=== PATIENT | female | born 1935 | race Caucasian/White ===

== ENCOUNTER 2017-07-05 16:44 | Inpatient (IN) | payer OTHER ==
[~2017-07-05] VITALS: Ht 160 cm; Wt 81.6 kg
[~2017-07-05 16:44] MED LIST: ACID CONTROLLER20 MG; ACIDOPHILUS LA1 EACH PO; AMLODIPINE BESYL5 MG PO; CARAFATE1 GM PO; CEFDINIR300 MG PO; CITALOPRAM20 MG/10 M; CITALOPRAM20 MG/10 M PO; CLOPIDOGREL BIS75 MG; CLORAZEPATE D3.75 MG; EDLUAR5 MG; EDLUAR5 MG PO; HUMALOG; HYDRALAZINE HCL25 MG; INSULINA; LAMICTAL25 M1; LOSARTAN POTASS25 MG PO; NAMENDA10 MG; NAMENDA10 MG PO; OMEPRAZOLE20 M1 PO; OSEL75CA PO; PANTOPRAZOLE SO40 MG PO; PROTEINEX1 TA1 PO; TOPROL XL50 MG PO
[2017-07-05] MEDS ORDERED: HUMALOG100 UNIT/1 (17:07)
[2017-07-05] MEDS ORDERED: PROTONIX40 MG (17:07)
[2017-07-05] MEDS ORDERED: PLAVIX75 MG (17:08)
[2017-07-05] MEDS ORDERED: RESTORIL15 M1 (17:09)
== END 2017-07-07 16:19 | disposition expired | DRG 871 ==
LOC: ER 16:44 → ICU-2 07-06 00:27
PROC: 5A1945Z Respiratory Ventilation, 24-96 Consecutive Hours (ICD-10-PCS; principal; 2017-07-06)
PROC: 0BH17EZ Insertion of Endotracheal Airway into Trachea, Via Natural or Artificial Opening (ICD-10-PCS; 2017-07-06)
PROC: 4A033R1 Measurement of Arterial Saturation, Peripheral, Percutaneous Approach (ICD-10-PCS; 2017-07-06)
PROC: 06HM33Z Insertion of Infusion Device into Right Femoral Vein, Percutaneous Approach (ICD-10-PCS; 2017-07-06)
PROC: 3E0336Z Introduction of Nutritional Substance into Peripheral Vein, Percutaneous Approach (ICD-10-PCS; 2017-07-06)
PROC: 3E0F7GC Introduction of Other Therapeutic Substance into Respiratory Tract, Via Natural or Artificial Opening (ICD-10-PCS; 2017-07-06)
DX: A41.9 Sepsis, unspecified organism (principal); R65.21 Severe sepsis with septic shock; J96.01 Acute respiratory failure with hypoxia; J69.0 Pneumonitis due to inhalation of food and vomit; N17.8 Other acute kidney failure; E87.0 Hyperosmolality and hypernatremia; J90 Pleural effusion, not elsewhere classified; J98.11 Atelectasis; N39.0 Urinary tract infection, site not specified; B37.0 Candidal stomatitis; E11.649 Type 2 diabetes mellitus with hypoglycemia without coma; E11.65 Type 2 diabetes mellitus with hyperglycemia; Z79.4 Long term (current) use of insulin; E86.0 Dehydration; I48.0 Paroxysmal atrial fibrillation; E11.22 Type 2 diabetes mellitus with diabetic chronic kidney disease; N18.1 Chronic kidney disease, stage 1; D50.8 Other iron deficiency anemias; Z66 Do not resuscitate; B96.89 Other specified bacterial agents as the cause of diseases classified elsewhere; B95.62 Methicillin resistant Staphylococcus aureus infection as the cause of diseases classified elsewhere; B96.20 Unspecified Escherichia coli [E. coli] as the cause of diseases classified elsewhere; Z16.12 Extended spectrum beta lactamase (ESBL) resistance